=== PATIENT | female | born 1995 | race Caucasian/White ===

== ENCOUNTER 2023-12-26 16:42 | Emergency (ER) | payer OTHER ==
[2023-12-26 17:31] VITALS: BP 130/94; PULSE 84; RESP 18; BMI 18.4
[2023-12-26 18:39] LABS: BASO % 0.2 % (0-2.0); EOS % 1.6 % (0-4.5); HEMATOCRIT 45.6 % (32.4-45.2); HEMOGLOBIN 15.3 GM/dL (10.7-15.3); LYMPH % 11.7 % (8-40); MCH 30.8 pg (25.7-33.7); MCHC 33.6 g/dl (32.0-36.0); MEAN CELL VOLUME 91.5 fl (80-96); MONO % 4.2 % (3.8-10.2); NEUT % 82.3 % (42.8-82.8); PLATELET COUNT 351 10^3/uL (134-434); RBC 4.98 M/mm3 (3.60-5.2); RDW 13.5 % (11.6-15.6); WHITE BLOOD COUNT 11.9 K/mm3 (4.0-10.0)
[2023-12-26] MEDS ORDERED: MECLIZINE HCL 25 MG TABLET (FP) ONE (19:07)
[2023-12-26] MEDS: SODIUM CHLORIDE 0.9% 500 ML INFUS.BAG IV ONE (19:16)
[2023-12-26] MEDS: MECLIZINE HCL 25 MG TABLET (FP) PO ONE (19:16)
[2023-12-26 19:22] LABS: CALCIUM 9.9 mg/dL (8.5-10.1); POTASSIUM 4.1 mmol/L (3.5-5.1)
[2023-12-26 19:24] LABS: ALBUMIN 5.2 g/dl (3.4-5.0); BLOOD UREA NITROGEN 7.8 mg/dL (7-18)
[2023-12-26 19:32] LABS: CREATININE 0.7 mg/dL (0.55-1.3)
== END 2023-12-26 20:08 | disposition home or self-care (01) ==
LOC: JERFT 16:42
DX: G40.909 Epilepsy, unspecified, not intractable, without status epilepticus (principal); E86.0 Dehydration; R51.9 Headache, unspecified; R42 Dizziness and giddiness; V47.5XXA Car driver injured in collision with fixed or stationary object in traffic accident, initial encounter
CPT/HCPCS: 36415; 70450-TC; 80053; 84703; 85025; 93005; 93010; 99285-25